=== PATIENT | female | born 1945 | race Caucasian/White ===

== ENCOUNTER 2023-10-19 10:22 | Outpatient (CLI) | payer MEDICARE | END 2023-10-19 10:23 | disposition home or self-care (01) | LOC: CSHULT 10:22 | PROVIDERS: ATTEND Nurse Practitioner Family | DX: R22.31 Localized swelling, mass and lump, right upper limb (principal); D17.21 Benign lipomatous neoplasm of skin and subcutaneous tissue of right arm | CPT/HCPCS: 76999 ==